=== PATIENT | male | born 1945 | race Caucasian/White ===

== ENCOUNTER 2016-07-21 23:58 | Emergency (ER) | payer MEDICARE, OTHER ==
[2016-07-22 01:00] LABS: CHLORIDE,CL 111 mmol/L (98-107); SODIUM,NA 146 mmol/L (136-145)
[2016-07-22 02:19] VITALS: BP 120/77
--- NOTE | 2016-08-06 16:09 | ER ---
The patient is a 71-year-old gentleman who was brought in to the emergency room from the [facility] [place]. The patient at around 11 p.m. was out side of the [facility]s Home when he fell to the floor and was unable to get up. The patient was noted to have increased weakness in the left side of his body and initially was taken to the clinic earlier and a CT of the head was done which was negative and patient was sent back to the group home. When these events happened again, nurses noted that he had increased slurring of speech with left-sided weakness and generalized weakness. He was unable to ambulate and was brought in for evaluation. PHYSICAL EXAMINATION: GENERAL: The patient was alert and oriented to time and place. Slight slurring of speech noted. HEENT: Eyes pupil were nonreactive about 3 mm. Throat was clear. NECK: Supple. LUNGS: Clear to auscultation. No rales, rhonchi, or wheezing. CARDIOVASCULAR: Regular rate and rhythm. No murmurs, no gallops. EKG was done, which revealed atrial fibrillation with a controlled rhythm. ABDOMEN: Soft, nontender, no masses. No organomegaly. EXTREMITIES: Left-sided weakness with no drift. INITIAL ASSESSMENT: Left-sided weakness, questionable cerebrovascular accident. CT of the head was obtained. CT of the head revealed no acute changes for the past two years. At this time, because this was a possible vascular accident, we contacted the stroke team at [facility] and the patient was transferred to Dr. Can who accepted the transfer. SIOBHAN Curiel MD /[id number]
== END 2016-07-22 02:00 ==
LOC: LL.ED 23:58
DX: I63.9 Cerebral infarction, unspecified (principal); R00.1 Bradycardia, unspecified; R47.81 Slurred speech; R26.2 Difficulty in walking, not elsewhere classified; R53.1 Weakness; R06.2 Wheezing; R05 Cough; G93.89 Other specified disorders of brain; Z98.890 Other specified postprocedural states
CPT/HCPCS: 36000; 36415; 70450; 71020; 80053; 82550; 82553; 83735; 83880; 84146; 84484; 85025; 85379; 85610; 85730; 99282; 99284; 99291; 99292